=== PATIENT | female | born 1945 | race Caucasian/White ===

== ENCOUNTER 2017-02-06 16:20 | Inpatient (IN) ==
[2017-02-06 16:39] LABS: MANUAL DIFF NEEDED? NO
[2017-02-06 16:44] LABS: BASO% 0.2 % (0.0-0.8); EOS# 0.14 X1000 (0.0-0.7); EOS% 1.6 % (0.0-10.0); HEMATOCRIT 27.2 % (37.0-47.0); HEMOGLOBIN 8.7 g/dL (12.0-16.0); LYMPH# 2.05 X1000 (1.2-3.4); MCH 26.3 PG (27-31); MCV 82.2 FL (81-99); MONO# 0.61 X1000 (0.11-0.59); MONO% 6.8 % (1.7-9.3); MPV 9.9 FL (7.4-10.4); NEUT% 68.4 % (42.2-75.2); PLT 267 X1000 (130-400); RBC 3.31 XMIL (4.2-5.4)
[2017-02-06 16:53] LABS: INR 1.07; PROTIME 11.3 Seconds (9.2-11.7); PTT 22.7 Seconds (22.0-36.0)
[2017-02-06 17:17] LABS: AGAP 11; ALBUMIN 3.5 g/dL (3.5-5.0); ALKALINE PHOSPHATASE 76 U/L (32-104); BUN 37 mg/dL (8-22); CALCIUM 8.3 mg/dL (8.8-10.2); CHLORIDE 107 mmol/L (98-107); COSMO 291; GOT 16 U/L (10-30); GPT 14 U/L (10-36); SODIUM 139 mmol/L (136-145); TCO2 21 mmol/L (25-35); TOTAL BILIRUBIN 0.12 mg/dL (0.20-1.00); TOTAL PROTEIN 5.5 g/dL (6.3-8.3)
--- NOTE | 2017-02-06 17:48 | ED EKG INTERP ---
This chart was entered by Marie Corral Scribe, acting as scribe for Kim Soto MD. EKG Interpretation - EKG Time of EKG reading by physician:: 16:23 EKG Read and Signed by:: Kim Soto EKG Interpretation (*Must complete 3 of following elements*): Abnormal Rate: 83 Rhythm: NSR [place]: normal QRS: normal (INFARCT, AGE UNDETERMINED), other This chart was documented by the indicated scribe, (Marie Corral Scribe) and accurately reflects the services I performed and decisions made by wa, Kim Soto MD, as attested by the provider's signature.
--- NOTE | 2017-02-06 19:37 | Diag Imaging Result Doc PS360 ---
EXAM: CHEST-2 VIEWS HISTORY: SOB TECHNIQUE: COMPARISON: None. FINDINGS: The lungs are well expanded. The heart is not enlarged. The vessels are not distended. There are no infiltrates. No pleural effusions. IMPRESSION: No acute abnormality. Electronically signed by Dennis Murillo 02/06/2017 7:34 PM
[2017-02-06] MEDS ORDERED: PROTONIX 80 MG in NS 80 ML IV ONE (20:22)
[2017-02-06] MEDS ORDERED: NS 1,000 ML IV ONE (20:23)
[2017-02-06] MEDS ORDERED: ZOFRAN IV PRN (21:21)
[2017-02-06] MEDS: NS 1,000 ML IV SCH (22:02)
[2017-02-06] MEDS: PROTONIX 80 MG in NS 80 ML IV SCH (22:02)
--- NOTE | 2017-02-07 05:12 | HISTORY AND PHYSICAL ---
CHIEF COMPLAINT: Rectal bleeding. PRIMARY CARE PHYSICIAN: Justa Harris MD HISTORY OF PRESENTING ILLNESS: A 71-year-old female with a history of coronary disease, diabetes mellitus type 2, and hypertension, had presented to the emergency department with 1-day history of noticing gross blood in the stool. She states it was somewhat bright red blood but it was also dark. She was dizzy and almost passed out. The patient subsequently had come to the emergency department. She was found to be anemic and due to her presenting symptoms, it was thought that she would need hospitalization for further management. At the time of my examination, she had denied any headache, vision changes, nausea, vomiting, diarrhea, chest pain, shortness of breath, hemoptysis or any weight changes but complained of bloody stools. PAST MEDICAL HISTORY: Includes breast cancer, coronary artery disease, diabetes mellitus type 2, hypertension. PAST SURGICAL HISTORY: Left mastectomy, hysterectomy, cholecystectomy, appendectomy, gastric bypass, coronary stent. ALLERGIES: To adhesive tape. CURRENT MEDICATIONS: As listed in the MAR. SOCIAL HISTORY: She denies any history of smoking, alcohol or illicit drug use. FAMILY HISTORY: Positive for coronary disease in father. REVIEW OF SYSTEMS: Twelve point systems is listed as in HPI. Other systems negative. PHYSICAL EXAMINATION: GENERAL: Cooperative, friendly, elderly female. She is resting comfortably now. VITAL SIGNS: Temperature 97.8 degrees, pulse 80, respirations 22, blood pressure 132/52. She is saturating 100%. HEENT: Atraumatic, normocephalic. Extraocular movements intact. PERRLA. NECK: Supple. CHEST: Clear to auscultation. CARDIOVASCULAR: Regular rate and rhythm. ABDOMEN: Soft, nontender. Positive bowel sounds. EXTREMITIES: No edema. NEURO: She is awake, alert, oriented x3. : No bladder distention. SKIN: Warm. LABORATORIES AND STUDIES: WBC is 8.93, hemoglobin 8.7, hematocrit 27.2, platelets 267,000. Sodium 139, potassium 5.0, chloride 107, CO2 21, BUN 37, creatinine 0.7, glucose is 193. ASSESSMENT: A 71-year-old female with a history of coronary artery disease, diabetes mellitus type 2, and hypertension who presented to the emergency department with a 1-day history of rectal bleeding. The patient will need hospitalization for further Gastroenterology evaluation. 1. Acute gastrointestinal bleed. 2. Diabetes mellitus type 2. 3. History of coronary artery disease. 4. Hypertension. PLAN: 1. We will admit patient to medical floor with telemetry. 2. We will keep patient NPO and start patient on Protonix drip. 3. We will monitor hemoglobin and hematocrit. 4. We will consult Gastroenterology. 5. Continue with IV fluids for hydration. 6. We will monitor blood glucose and put the patient on sliding scale insulin regimen. 7. We will monitor blood pressure and resume antihypertensive agent. 8. Put patient on DVT prophylaxis with SCDs. 9. We will continue to follow and reassess. cc: Hal Bo MD
--- NOTE | 2017-02-07 06:27 | EKG Report ---
Test Performed on : 02/06/2017 4:23:39 PM Test Reason : SOB Blood Pressure : / mmHG Vent. Rate : 083 BPM Atrial Rate : 083 BPM P-R Int : 128 ms QRS Dur : 072 ms QT Int : 382 ms P-R-T Axes : 038 -15 046 degrees QTc Int : 448 ms Normal sinus rhythm. Inferior infarct , age undetermined Abnormal ECG When compared with ECG of 18-OCT-2009 17:12, Nonspecific T wave abnormality no longer evident in Lateral leads QT has shortened Unconfirmed Result
[2017-02-07] MEDS: HUMULIN R SUBQ SCH ×4 (06:56→23:28)
[2017-02-07] MEDS: PROTONIX 80 MG in NS 80 ML IV SCH ×2 (06:56→17:28)
[2017-02-07 07:03] LABS: MANUAL DIFF NEEDED? NO
[2017-02-07 07:14] LABS: BASO% 0.3 % (0.0-0.8); EOS% 3.4 % (0.0-10.0); HEMATOCRIT 26.7 % (37.0-47.0); HEMOGLOBIN 8.7 g/dL (12.0-16.0); LYMPH# 2.18 X1000 (1.2-3.4); LYMPH% 37.1 % (20.5-51.1); MCH 27.2 PG (27-31); MCHC 32.6 g/dL (33-37); MCV 83.4 FL (81-99); MONO% 8.5 % (1.7-9.3); MPV 10.2 FL (7.4-10.4); NEUT% 50.7 % (42.2-75.2); PLT 206 X1000 (130-400)
[2017-02-07 07:25] LABS: AGAP 10; BUN 29 mg/dL (8-22); CHLORIDE 111 mmol/L (98-107); COSMO 291; POTASSIUM 4.8 mmol/L (3.5-5.1); SODIUM 142 mmol/L (136-145); TCO2 21 mmol/L (25-35)
[2017-02-07] MEDS: NS 1,000 ML IV SCH (09:50)
[2017-02-07] MEDS ORDERED: ANTIVERT PO PRN (17:34)
--- NOTE | 2017-02-07 17:57 | PROGRESS NOTE ---
DATE: 02/07/2017 SUBJECTIVE: A 71-year-old with a history of coronary artery disease, diabetes mellitus type 2, hypertension, presented to the emergency department with a 1-day history of noticing gross blood in the stool. She noticed she had some bright red blood. Also dark. She describes some epigastric discomfort postprandial for some time, but she is also concerned that she is dizzy was sounds like almost vertiginous symptoms. [place] like she might want to pass out. She is found to have anemia and was admitted to the hospital. PAST MEDICAL HISTORY: Breast cancer, coronary artery disease, diabetes mellitus type 2. SURGICAL HISTORY: Left mastectomy, hysterectomy, cholecystectomy, appendectomy, gastric bypass and coronary stent. DIAGNOSTICS: Chest x-ray, no acute abnormality. EKG on presentation, she was in normal sinus rhythm. Some Q-waves in the inferior leads, questionable significance, really no change so. ASSESSMENT AND PLAN: 1. A 71-year-old with history of coronary artery disease, diabetes mellitus type 2, hypertension, presented to emergency department with a one-day history of rectal bleeding, described bright red blood. I think she has had a colonoscopy by report a year ago Dr. Baxter. She has had epigastric discomfort. My suspicion is he will want to do an EGD. She did receive some blood by her report. Her blood count on presentation, hemoglobin was 8.7, hematocrit was 27. So I think they did transfuse 1 unit yesterday. She feels like she is losing blood from somewhere and looking at her laboratory, her MCV was 82. 2. Dizziness, vertiginous type with some nausea, I will let her try some Antivert. She denies any chest pain. We will check some blood count again in the morning. cc: David Sands MD
[2017-02-08] MEDS: PROTONIX 80 MG in NS 80 ML IV SCH ×3 (04:13→21:24)
--- NOTE | 2017-02-08 04:20 | PROVIDER DOCUMENTATION ---
This chart was entered by Meg Dumont Scribe, acting as scribe for Jim Butterfield MD. HPI-Abdominal Pain/GI Problem - General Chief Complaint: Weakness Stated Complaint: sob, cp Time Seen by Provider: 02/06/17 20:00 Source: patient Allergies/Adverse Reactions: Patient Allergies Allergy/AdvReac Type Severity Reaction Status Date / Time adhesive tape AdvReac HIVES Verified 02/06/17 20:01 Home Medications: Home Medication List Medication Instructions Recorded Confirmed Last Taken Type Aspirin [Aspirin EC] 1 tab PO DAILY 02/06/17 02/06/17 02/05/17 09:00 History Iron Carbonyl/Ascorbic Acid 1 tab PO DAILY 02/06/17 02/06/17 02/05/17 09:00 History [Icar-C] Losartan Potassium [Cozaar] 100 mg PO DAILY 02/06/17 02/06/17 02/05/17 09:00 History Metformin E.r. [Glucophage Xr] 3 tab PO DAILY 02/06/17 02/06/17 02/05/17 09:00 History Metoprolol Succinate E.r. [Toprol 25 mg PO DAILY 02/06/17 02/06/17 02/05/17 09: 00 History Xl] Multivit-Minerals/Folic Acid 2 tab PO BID 02/06/17 02/06/17 02/05/17 09:00 History [Centrum Multigummies] Patient's Own Med 2 cap PO DAILY 02/06/17 02/06/17 02/05/17 09:00 History - History of Present Illness-ABD Nature of Presenting Problems: 71 Y/O F presents to ED with GI problems. Pt states that she has a hx of low iron, needed to get a blood transfusion didn't do them, but was prescribed iron pills. Pt states this evening around 3pm she stated that she became N with tightness in her chest, diaphoretic and felt faint. Pt has a hx of gastric bypass states 5 years ago, and c/o of pain and discomfort while eating at times. Pt states that today during the episode that she didn't make it to the bathroom right away and had blood running down her leg but when she did make it to the bathroom that she was passing blood clots with her stool and it was a mix of maroon and bright red blood. Pt had a hx of fibro cysts with similar symptoms. Pt states that she has a hx of stints with 2 baby aspirin a day. Severity in ED: reports: moderate Onset/Duration: reports: just prior to arrival, 4-6 hours ago, this evening Timing: reports: gone now Activities at Onset: reports: none Associated Symptoms: reports: diaphoresis, nausea, syncope (near). denies: arm pain, back/neck pain, fever/chills, sinus congestion/drainage, vomiting Last BM: this evening Dark Stools Present?: reports: maroon, bright red blood Rectal Bleeding: reports: blood mixed with stool # of Diarrhea Episodes: 1 Rectal Pain: reports: none Emesis Description: reports: none Bruising or Bleeding Gums?: No Similar Symptoms Previously?: No Recently seen or treated by another doctor?: No Review of Systems - Adult - REVIEW OF SYSTEMS - ADULT Constitutional: denies: chills, fever Eyes: reports: no symptoms reported Ears, Nose, Mouth & Throat: reports: no symptoms reported Cardiovascular: reports: no symptoms reported Respiratory: reports: no symptoms reported Gastrointestinal: reports: nausea, rectal bleeding. denies: abdominal pain, diarrhea Genitourinary: reports: no symptoms reported Musculoskeletal: reports: no symptoms reported Integumentary: reports: no symptoms reported Neurological: reports: syncope (near). denies: dizziness/vertigo, headache/ migraines Psychiatric: reports: no symptoms reported Endocrine: reports: no symptoms reported Hematologic/Lymphatic: reports: blood clots (rectal) Allergic/Immunologic: reports: no symptoms reported All Other Systems: Reviewed and Negative Past History - Adult - PAST MEDICAL HISTORY-ADULT Review of Records: reports: Old Records Reviewed, Nursing Assessment Review, Medications Reviewed, Social history reviewed & non-contributory. Physical Exam-General - CONSTITUTIONAL General Appearance: alert, no apparent distress - EYES Eyes: PERRL/EOMI, pink conjunctivae - HEAD, EARS, NOSE, MOUTH & THROAT HENMT: moist mucous membranes, normal ENT inspection, TMs normal, pharynx normal - NECK Neck: non-tender, full range of motion, supple, normal inspection - RESPIRATORY Respiratory: lungs clear, normal breath sounds - CARDIOVASCULAR Cardiovascular: normal peripheral pulses, regular rate, rhythm - GASTROINTESTINAL (ABDOMEN) Abdominal Exam: non tender, soft - LYMPHATIC Lymphatic: no adenopathy - MUSCULOSKELETAL Back Exam: normal inspection, no CVA tenderness, no vertebral tenderness - SKIN Integumentary: normal color, normal turgor - PSYCHIATRIC Psych/Mental Status: normal mood/affect, normal thought content, normal thought process, oriented x 3 Progress - PLAN OF CARE/RESULTS Progress/Plan/Lab Results: Vital Signs - 8 hr 02/06/17 16:22 Temperature 97.8 F Pulse Rate 88 Respiratory Rate 22 Blood Pressure 132/52 O2 Sat by Pulse Oximetry 100 Laboratory Results - last 24 hr 02/06/17 02/06/17 02/06/17 16:26 16:26 16:26 WBC 8.93 RBC 3.31 L Hgb 8.7 L Hct 27.2 L MCV 82.2 MCH 26.3 L MCHC 32.0 L RDW Std Deviation 12.6 Plt Count 267 MPV 9.9 Immature Gran % (Auto) 0.0 Neut % (Auto) 68.4 Lymph % (Auto) 23.0 [place] % (Auto) 6.8 Eos % (Auto) 1.6 Baso % (Auto) 0.2 Immature Gran # (Auto) 0.00 Neut # (Auto) 6.11 Lymph # (Auto) 2.05 [place] # (Auto) 0.61 H Eos # (Auto) 0.14 Baso # (Auto) 0.02 PT 11.3 INR 1.07 PTT (Actin FS) 22.7 Sodium 139 Potassium 5.0 Chloride 107 Carbon Dioxide 21 L Anion Gap 11 BUN 37 H Creatinine 0.7 Estimated GFR/1.73 m2 > 60 BUN/Creatinine Ratio 53 Glucose 193 H POC Glucose Calculated Osmolality 291 Calcium 8.3 L Total Bilirubin 0.12 L AST 16 ALT 14 Alkaline Phosphatase 76 Creatine Kinase Total Protein 5.5 L Albumin 3.5 Globulin 2.0 Albumin/Globulin Ratio 1.8 02/06/17 02/06/17 16:26 16:27 WBC RBC Hgb Hct MCV MCH MCHC RDW Std Deviation Plt Count MPV Immature Gran % (Auto) Neut % (Auto) Lymph % (Auto) [place] % (Auto) Eos % (Auto) Baso % (Auto) Immature Gran # (Auto) Neut # (Auto) Lymph # (Auto) [place] # (Auto) Eos # (Auto) Baso # (Auto) PT INR PTT (Actin FS) Sodium Potassium Chloride Carbon Dioxide Anion Gap BUN Creatinine Estimated GFR/1.73 m2 BUN/Creatinine Ratio Glucose POC Glucose 225 H Calculated Osmolality Calcium Total Bilirubin AST ALT Alkaline Phosphatase Creatine Kinase 153 Total Protein Albumin Globulin Albumin/Globulin Ratio Orders Category Date Time Status CHEST-2 VIEWS [RAD] Stat Exams 02/06/17 18:57 Completed CBC WITH DIFF [HEME] Stat Lab 02/06/17 16:26 Completed CK PROFILE [SP CHEM] Stat Lab 02/06/17 16:26 Completed COMPREHENSIVE METABOLIC PANEL [CHEM] Stat Lab 02/06/17 16:26 Completed Ddimer [D-DIMER] [CHEM] Stat Lab 02/06/17 16:26 Received LRPC (RED CELLS) [BBK] Stat Lab 02/06/17 20:22 Uncollected PROTIME WITH INR [COAG] Stat Lab 02/06/17 16:26 Completed PTT [COAG] Stat Lab 02/06/17 16:26 Completed TROPONIN T Stat Lab 02/06/17 16:26 Received TYPE & SCREEN [BBK] Stat Lab 02/06/17 20:22 Ordered EKG [EKG] Stat Ther 02/06/17 18:58 Ordered Result Diagrams: 02/07/17 06:48 02/07/17 06:48 - CONSULTS/PCP/HOSPITALIST Notification #1 *Consult/PCP/Hospitalist*: Time Discussed: 20:24 Reason/Comments: Admit Consult Disposition: Admit (Admit Accepted) Departure - Departure Date of Disposition Decision: 02/06/17 Time of Disposition Decision: 20:32 DIAGNOSIS: GI bleed Qualifiers: GI bleed type/associated pathology: unspecified gastrointestinal hemorrhage type Qualified Code(s): K92.2 - Gastrointestinal hemorrhage, unspecified Disposition: ADMITTED INPATIENT 09 Certified Medical Emergency: Emergent Condition: Fair - Critical Care Note This patient required my direct & personal management of CC.: No This chart was documented by the indicated scribe, (Meg Dumont Scribe) and accurately reflects the services I performed and decisions made by me, Jim Butterfield MD, as attested by the provider's signature.
[2017-02-08] MEDS: HUMULIN R SUBQ SCH ×4 (06:34→21:30)
[2017-02-08 06:39] LABS: MANUAL DIFF NEEDED? NO
[2017-02-08 06:48] LABS: BASO% 0.5 % (0.0-0.8); EOS# 0.26 X1000 (0.0-0.7); EOS% 6.1 % (0.0-10.0); HEMATOCRIT 25.1 % (37.0-47.0); HEMOGLOBIN 8.1 g/dL (12.0-16.0); LYMPH# 1.82 X1000 (1.2-3.4); LYMPH% 42.4 % (20.5-51.1); MCH 27.5 PG (27-31); MCHC 32.3 g/dL (33-37); MCV 85.1 FL (81-99); MONO# 0.38 X1000 (0.11-0.59); MONO% 8.9 % (1.7-9.3); MPV 10.3 FL (7.4-10.4); NEUT% 42.1 % (42.2-75.2); PLT 185 X1000 (130-400); RBC 2.95 XMIL (4.2-5.4)
[2017-02-08 06:57] LABS: AGAP 10; ALBUMIN 2.9 g/dL (3.5-5.0); ALKALINE PHOSPHATASE 65 U/L (32-104); BUN 16 mg/dL (8-22); CALCIUM 7.9 mg/dL (8.8-10.2); CHLORIDE 112 mmol/L (98-107); COSMO 286; GOT 13 U/L (10-30); GPT 10 U/L (10-36); POTASSIUM 4.3 mmol/L (3.5-5.1); SODIUM 142 mmol/L (136-145); TCO2 20 mmol/L (25-35); TOTAL BILIRUBIN 0.18 mg/dL (0.20-1.00); TOTAL PROTEIN 4.7 g/dL (6.3-8.3)
[2017-02-08] MEDS: NS 1,000 ML IV SCH ×2 (11:47→12:14)
--- NOTE | 2017-02-08 14:37 | PROGRESS NOTE ---
DATE: 02/08/2017 SUBJECTIVE: She was resting comfortably and easy to arouse. OBJECTIVE: Vital Signs: Temperature is 97.8, pulse 60, respirations 18, and blood pressure 172/56. CVP less than 6 cm. Lungs: Clear in all lung cabrera. Cardiovascular: Regular rhythm and rate without murmur or S3. Urine output is about 1400 mL. LABORATORY DATA: White count is 4,290, hematocrit 25, and platelet count 185,000. Chemistry: Sodium 122, 116, and 145. ASSESSMENT AND PLAN: 1. Patient with history of coronary artery disease, diabetes mellitus type 2, and hypertension who presented to the Emergency Room with a one day history of rectal bleeding described as bright red blood. She had a colonoscopy about a year ago per Dr. Baxter. She had epigastric discomfort at that time. EGD is planned for today. Hemoglobin was 8.7 and hematocrit 27, so we gave her 1 unit of blood already. 2. Dizziness which sounds more vertiginous and that sounds like it is better. I did try her on some Antivert. 3. History of coronary artery disease. 4. Diabetes mellitus type 2. Blood sugar is well controlled. 5. Blood pressure is well controlled as well. REVIEW OF ORDERS: She is on an IV drip of Protonix. She is getting Antivert. She gets normal saline at 80 mL/hr. cc: David Sands MD
[2017-02-08] MEDS ORDERED: ZOFRAN ONE (16:09)
[2017-02-08] MEDS ORDERED: ROBINUL ONE (16:09)
[2017-02-08] MEDS ORDERED: XYLOCAINE-MPF 2% ONE (16:09)
[2017-02-08] MEDS ORDERED: DIPRIVAN 1% ONE (16:10)
[2017-02-08] MEDS ORDERED: LABETALOL ONE (16:34)
[2017-02-08] MEDS ORDERED: GOLYTELY PO ONE (16:56)
[2017-02-08] MEDS: CARAFATE LIQUID PO SCH (21:23)
--- NOTE | 2017-02-08 22:10 | OPERATIVE NOTE ---
PROCEDURE DATE: 02/08/2017 PROCEDURE PERFORMED: Esophagogastroduodenoscopy and hemorrhage control. PROVIDER: Maik Baxter MD PREOPERATIVE DIAGNOSES: 1. Acute gastrointestinal bleed. 2. Anemia secondary bleed. POSTOPERATIVE DIAGNOSIS: Marginal ulcer, jejunum with visible vessel treated. Surgical changes suggestive of gastric bypass surgery. INDICATIONS: This is a 71-year-old white female who was admitted to the hospital with GI bleed and anemia. Endoscopy was done to identify the etiology and treat accordingly. DESCRIPTION OF PROCEDURE: Informed consent was obtained from the patient. The procedure, risks, benefits, and alternatives were explained in layman's terms. She understood and all of her pertinent questions were answered. The patient was brought to the endoscopy unit and was premedicated as per Anesthesia. After adequate sedation, while she was lying in the left lateral position, the gastroscope was introduced into the posterior pharynx and advanced under direct visualization through the esophagus. The esophagus in its entire length appeared to be normal. No esophagitis, webs, rings, or varices were seen. The scope was then passed through the esophagus into the stomach, where there was evidence of gastric bypass surgery. There was a punched out ulcer noted at the anastomosis, which was about 15 mm in the widest length and about 8 mm wide, 15 mm x 8 mm. At 1 corner, I did see a hyperemic red spot suggestive of a visible vessel. There was no active bleeding. Using a heater probe, I cauterized the area with fulguration noted. The scope was then advanced into the jejunum all the way as far as I could go with the scope. I did not see any evidence of active bleeding or stigmata of recent bleed. The scope was removed. The patient tolerated the procedure with no complications noted. The patient was then transferred to the recovery area in stable condition. IMPRESSION: 1. Marginal ulcer anastomosis with visible vessel, treated. 2. Surgical changes suggestive of gastric bypass surgery. 3. Otherwise normal esophagogastroduodenoscopy. RECOMMENDATIONS: I would continue on proton pump inhibitor. Add Carafate. The above finding do not completely explain the anemia and bleeding. She did not show any evidence of active bleeding from the ulcer. I will proceed with colonoscopy in the morning as chances are this may be a diverticular bleed. cc: Maik Baxter MD
[2017-02-09] MEDS: NS 1,000 ML IV SCH ×2 (01:47→17:37)
[2017-02-09] MEDS: CARAFATE LIQUID PO SCH ×4 (01:52→21:16)
[2017-02-09] MEDS: PROTONIX 80 MG in NS 80 ML IV SCH (06:27)
[2017-02-09] MEDS: HUMULIN R SUBQ SCH ×4 (06:29→22:50)
[2017-02-09] MEDS ORDERED: DIPRIVAN 1% ONE ×2 (12:08→13:06)
[2017-02-09] MEDS ORDERED: XYLOCAINE-MPF 2% ONE (12:09)
[2017-02-09] MEDS ORDERED: XYLOCAINE 2% VISCOUS ONE (13:22)
[2017-02-09] MEDS ORDERED: MYLICON DROPS (DOSE) ONE (13:22)
--- NOTE | 2017-02-09 14:07 | OPERATIVE NOTE ---
PROCEDURE DATE: 02/09/2017 PROCEDURE: Colonoscopy and anal dilation. PREOPERATIVE DIAGNOSES: 1. Gastrointestinal bleed. 2. Anemia. POSTOPERATIVE DIAGNOSIS: Anal stricture. Otherwise normal colon all the way up to the cecum. SCOPE: Olympus [id number] MEDICATIONS: MAC as Anesthesia. HISTORY: This is a 71-year-old, white female admitted to hospital with GI bleed, anemia, requiring blood transfusion. EGD examination did show a marginal ulcer, but no active bleeding was seen. The patient has continued to have some bright red blood per rectum. Colonoscopy was done to rule out lower GI pathology as possible cause of her symptoms. DESCRIPTION OF PROCEDURE: Informed consent obtained from the patient. Patient was brought to the endoscopy unit and was premedicated as per Anesthesia. After adequate sedation, while she was lying in left lateral position, digital rectal exam was performed, which shows moderate anal stricture. Only part of my index finger could be introduced into her rectum. The scope was then gently introduced into the rectum and advanced under direct vision through the parts of the colon, all the way up to the cecum. The cecum was identified by ileocecal valve and appendiceal orifice. Scope was withdrawn paying close attention to details. Preparation was good. The visualized portion of the colon revealed no polyps, tumors, cancers. I did not see any diverticula or evidence of diverticular bleeding. The scope was withdrawn to the rectum. Rectum was examined in both straight and retroflexed view, which revealed hypertrophied anal papilla, but no tumor or cancer was seen. The scope was then withdrawn and the stricture was dilated up to 2 fingerbreadths. After adequate dilation, I did place lidocaine viscous for her anal pain. Scope was then removed. Patient tolerated the procedure with no complications noted. Patient was then transferred to the recovery area in a stable condition. IMPRESSION: Anal stricture dilated, hypertrophied anal papilla and normal colon up to the cecum. RECOMMENDATION: I would continue on proton pump inhibitor and Carafate. Start MiraLAX 1 cap in a glass of water or juice every day. Follow up with me in the office after discharge. cc: Maik Baxter MD Unknown Attending,
--- NOTE | 2017-02-09 14:20 | PROGRESS NOTE ---
DATE: 02/09/2017 SUBJECTIVE: Ms. Salinas is comfortable. OBJECTIVE: Vital Signs: Afebrile. Pulse 56, respirations 18, blood pressure 152/46. HEENT: Pupils are equal and round. Lungs: Clear in all lung cabrera. Cardiovascular: Regular rhythm and rate, without murmurs. URINE OUTPUT: Eleven liters. LABORATORY: White count 4290, hematocrit 25, platelet count 185,000. Blood sugar 125, 160, 140. ASSESSMENT AND PLAN: 1. Esophagogastroduodenoscopy done. There is marginal ulcer at anastomosis with visible vessel, which was treated. Surgical changes suggestive gastric bypass surgery. Otherwise, normal EGD. Colonoscopy is planned today. 2. Dizziness with some vertiginous symptoms, which is better. 3. History of coronary artery disease. 4. Diabetes mellitus, type 2. 5. Blood pressure is well controlled. REVIEW OF ORDERS: I do not see any change at this point. She is on Carafate 1 g q.6 hours, getting normal saline at 80 mL an hour, Prilosec 40 mg a day, Antivert 25 mg p.o. t.i.d. p.r.n. cc: David Sands MD
[2017-02-10] MEDS: CARAFATE LIQUID PO SCH ×3 (05:23→14:55)
[2017-02-10] MEDS: NS 1,000 ML IV SCH (05:24)
[2017-02-10] MEDS: HUMULIN R SUBQ SCH ×2 (06:23→11:42)
[2017-02-10] MEDS ORDERED: PRILOSEC PO SCH (07:00)
[2017-02-10 07:28] VITALS: BP 148/59
--- NOTE | 2017-02-10 14:19 | DISCHARGE SUMMARY ---
ADMISSION DATE: 02/06/2017 DISCHARGE DATE: 02/10/2017 HOSPITAL COURSE: She is a patient of Dr. Justa Harris. She presented with rectal bleeding. A 71-year-old with history of coronary artery disease, diabetes mellitus, hypertension, presented to the emergency room with 1-day history of gross blood in the stool. States she saw some bright red blood but also dark blood. She was dizzy and almost passed out. Patient subsequently came to the emergency room department found to be anemic. Due to her presenting symptoms thought that she would need hospitalization further management. At the time of examination on presentation she denied headache, vision change, nausea, vomiting, diarrhea, chest pain, shortness of breath, hemoptysis or weight changes. PAST MEDICAL HISTORY: Includes breast cancer, coronary artery disease, diabetes mellitus type 2, hypertension. PAST SURGICAL HISTORY: Left mastectomy, hysterectomy, cholecystectomy, appendectomy, gastric bypass and coronary stent. Patient admitted for GI evaluation. She had EGD done per Dr. Baxter and she saw marginal ulcer anastomosis with visible vessel which was treated, surgical changes suggestive gastric bypass surgery. Otherwise unremarkable. Colonoscopy was performed per Dr. Baxter and he had an anal stricture dilated hypertrophied anal papilla, normal colon up to the cecum. Wanted to continue on proton pump inhibitor and Carafate, put her on some MiraLAX once a day. Patient wanting to go home on 02/10/2017 so will get her ready. DISCHARGE MEDICATIONS: I did put her on some Antivert as she had some vertiginous type symptoms she can have p.r.n., Prilosec 40 mg a day, Carafate 1 g q.6 hours p.r.n. and will put her on some MiraLAX, she was on aspirin, I think she can go back on an 81 mg aspirin and I think she can also go back on her Icar. I did stop the Cozaar, the Toprol and her blood pressures seemed to be well controlled without that so will hold those for now. cc: David Sands MD
== END 2017-02-10 15:01 | disposition home or self-care (01) ==
LOC: ED 16:20 → 3N 21:20 → SUATTDRO 21:20
PROVIDERS: ATTEND Emergency Medicine